=== PATIENT | male | born 1935 | race Caucasian/White ===

== ENCOUNTER 2019-11-19 21:48 | Emergency (ER) | payer MEDICARE, BC ==
[~2019-11-19] VITALS: Ht 175.3 cm; Wt 77.3 kg
[2019-11-19 22:00] VITALS: TEMP 97.9
[2019-11-19 23:04] VITALS: BP 137/81; PULSE 79
== END 2019-11-19 23:00 | disposition home or self-care (01) ==
LOC: COL.ER 21:48
DX: S61.210A Laceration without foreign body of right index finger without damage to nail, initial encounter (principal); W23.0XXA Caught, crushed, jammed, or pinched between moving objects, initial encounter; Y93.02 Activity, running; Y92.009 Unspecified place in unspecified non-institutional (private) residence as the place of occurrence of the external cause

== ENCOUNTER → 2019-11-26 | Outpatient (CLI) | payer MEDICARE, BC ==
[2019-11-26 08:51] VITALS: BP 155/84; PULSE 63; TEMP 97.8
== END ==
LOC: COL.ER 08:19
DX: Z48.02 Encounter for removal of sutures (principal)

== ENCOUNTER 2020-03-16 09:00 | Outpatient (RCR) | payer MEDICARE, BC | END 2020-04-11 | disposition home or self-care (01) | LOC: WSOT | DX: S67.190D Crushing injury of right index finger, subsequent encounter (principal) ==

== ENCOUNTER 2021-07-21 11:26 | Outpatient (CLI) | payer MEDICARE, BC ==
[~2021-07-21] VITALS: Ht 175.3 cm; Wt 77.7 kg
[2021-07-21 11:42] VITALS: BP 125/78; PULSE 60; TEMP 98.1
[2021-07-21] MEDS ORDERED: MICARDIS40 MG PO (11:51)
[2021-07-21] MEDS ORDERED: SYNTHROID0.05 MG/TA PO (11:52)
== END 2021-07-21 12:42 | disposition home or self-care (01) ==
LOC: EUO 11:26
DX: S37.009A Unspecified injury of unspecified kidney, initial encounter (principal); N30.91 Cystitis, unspecified with hematuria
CPT/HCPCS: J7030